=== PATIENT | female | born 1990 | race Caucasian/White ===

== ENCOUNTER → 2018-12-07 | Outpatient (CLI) | payer MEDICAID ==
--- NOTE | 2018-12-07 12:41 | Diagnostic Imaging Report ---
INDICATION: Epigastric abdominal pain. TECHNIQUE: Multiple grayscale sonographic images were obtained of the right upper quadrant of the abdomen. CORRELATION STUDY: None. FINDINGS: LIVER: There is increased echotexture within the visualized portions of the liver. There is normal, hepatopetal direction of flow within the main portal vein. Liver length of 17.3 cm. GALLBLADDER: The gallbladder demonstrates no definitive shadowing gallstones. No abnormal gallbladder wall thickening. COMMON BILE DUCT: Nondilated at 4 mm. PANCREAS: Largely obscured and not well visualized. RIGHT KIDNEY: Measures 11.5 x 5.0 x 6.2 cm. No hydronephrosis. AORTA/IVC: Not well visualized. OTHER: Small amount of fluid within the gallbladder fossa. IMPRESSION: 1. Changes likely reflecting moderate severity hepatic steatosis. 2. Negative for gallstones or bile duct dilatation. Small amount of pericholecystic fluid is present, nonspecific as to the etiology or significance. Dictated by: Dictated on workstation # [id number]
== END ==
LOC: RAD 08:08
PROVIDERS: ATTEND Nurse Practitioner Primary Care
DX: R10.13 Epigastric pain (principal)
CPT/HCPCS: 76705

== ENCOUNTER 2019-04-02 13:47 | Emergency (ER) | payer MEDICAID ==
[~2019-04-02] VITALS: Ht 160 cm; Wt 81.6 kg
--- NOTE | 2019-04-02 14:12 | ED Lower Extremity ---
General Chief Complaint: Lower Extremity Stated Complaint: R KNEE PAIN Nursing Triage Note: PT AMB TO TRIAGE WITH COMPLAINT OF RIGHT KNEE PAIN. STATES SHE HAS CHRONIC KNEE PAIN BUT WAS MOVING THE OTHER DAY AND KNEE BUCKLED AND POPPED. STATES PAIN HAS INCREASED. Nursing Sepsis Screen: No Definite Risk Source: patient Exam Limitations: no limitations History of Present Illness Date Seen by Provider: Apr 02, 2019 Time Seen by Provider: 14:11 Initial Comments To ER by and 5 children with reports of right knee pain. She has chronic right knee pain. She had a patellar dislocation several years ago for a knee brace and that seemed to get better. Last night her knee "buckled and bent backwards". states that it was the size of a football. Miraculously, today it is back to normal. She has persistent pain and feels as though it's going to dislocate again. Onset: just prior to arrival Severity: moderate Pain/Injury Location: right knee Method of Injury: unknown Modifying Factors: Improves With Movement Allergies and Home Medications Allergies Coded Allergies: hydrogen peroxide (Verified Allergy, Unknown, 04/02/19) latex (Verified Allergy, Unknown, 04/02/19) Patient Home Medication List Home Medication List Reviewed: Yes Review of Systems Constitutional: see HPI EENTM: see HPI Respiratory: no symptoms reported Cardiovascular: no symptoms reported Genitourinary: no symptoms reported Musculoskeletal: see HPI Skin: no symptoms reported Psychiatric/Neurological: No Symptoms Reported Past Xeswtzk-Agbkuq-Vjfmqr Hx Patient Social History Alcohol Use: Denies Use Recreational Drug Use: No Smoking Status: Never a Smoker Recent Foreign Travel: No Contact w/Someone Who Travel: No Recent Infectious Disease Expo: No Physical Abuse: No Sexual Abuse: No Mistreated: No Fear: No Immunizations Up To Date Tetanus Booster (TDap): Unknown PED Vaccines UTD: Yes Physical Exam Vital Signs Vital Signs - First Documented 04/02/19 13:57 Temp 98.0 Pulse 82 Resp 16 B/P (MAP) 133/80 (97) Pulse Ox 97 O2 Delivery Room Air Capillary Refill : Less Than 3 Seconds Height, Weight, BMI Height: 5'3.00" Weight: 180lbs. oz. 81.106911mz; BMI Method:Stated General Appearance: WD/WN, no apparent distress HEENT: PERRL/EOMI Neck: non-tender, full range of motion Hips: bilateral hip non-tender, bilateral hip normal inspection, bilateral hip normal range of motion Legs: bilateral leg non-tender, bilateral leg normal inspection, bilateral leg normal range of motion Knees: right knee other (she is normal in appearance without ecchymosis edema or palpable effusion. No deformity.) Ankles: bilateral ankle non-tender, bilateral ankle normal inspection, bilateral ankle normal range of motion Feet: bilateral foot non-tender, bilateral foot normal inspection, bilateral foot normal range of motion Neurologic/Psychiatric: alert, normal mood/affect, oriented x 3 Skin: normal color, warm/dry Dorsalis pedis pulse is +2 in strength. Able to manually without difficulty. Progress/Results/Core Measures Results/Orders My Orders Orders - JASEN RICE APRN Knee, Right, 3 Views (04/02/19 14:09) Vital Signs/I&O 04/02/19 13:57 Temp 98.0 Pulse 82 Resp 16 B/P (MAP) 133/80 (97) Pulse Ox 97 O2 Delivery Room Air Blood Pressure Mean: 97 Departure Impression Primary Impression: Internal derangement of knee Qualified Codes: M23.91 - Unspecified internal derangement of right knee Disposition: 01 HOME, SELF-CARE Condition: Stable Departure-Patient Inst. Decision time for Depature: 14:13 Referrals: [facility] [place] (PCP) Primary Care Physician KOKI SERRA APRN (Family) Primary Care Physician Patient Instructions: Internal Derangement of the Knee Add. Discharge Instructions: 1. Wear the knee brace/immobilizer until told to take it off by primary care. 2. Call your primary care provider tomorrow to make an appointment to be seen. Further evaluation might include MRI. All discharge instructions reviewed with patient and/or family. Voiced understanding. JASEN RICE APRN Apr 02, 2019 14:12
--- NOTE | 2019-04-02 14:58 | Diagnostic Imaging Report ---
INDICATION: Stepped wrong and felt pop in knee. FINDINGS: Right knee. Three views. Articulating surfaces are smooth. Joint spaces well-preserved. Patella is in good alignment with capitellum. IMPRESSION: Normal right knee. Dictated by: Dictated on workstation # [id number]
[2019-04-02 15:12] VITALS: BP 133/80
== END 2019-04-02 15:12 | disposition home or self-care (01) ==
LOC: EDUNIT# 13:47 → ER 13:48
DX: M23.91 Unspecified internal derangement of right knee (principal); Z91.040 Latex allergy status; Z88.8 Allergy status to other drugs, medicaments and biological substances
CPT/HCPCS: 73562

== ENCOUNTER 2019-04-19 05:39 | Outpatient (CLI) | payer MEDICAID ==
[~2019-04-19] VITALS: Ht 162.6 cm; Wt 89.0 kg
[2019-04-19] MEDS ORDERED: ESCI20TA45 PO (12:55)
[2019-04-19] MEDS ORDERED: PNV1TABL81 PO (12:55)
== END 2019-04-19 12:59 | disposition home or self-care (01) ==
LOC: PREOP 05:39
PROVIDERS: ATTEND Surgery
DX: Z01.818 Encounter for other preprocedural examination (principal)

== ENCOUNTER 2019-04-26 06:56 | Day surgery (SDC) | payer MEDICAID ==
[2019-04-26] VITALS (9 sets, daily range): BP systolic 110–145; BP diastolic 66–86
[~2019-04-26] VITALS: Ht 162 cm; Wt 89.0 kg
[~2019-04-26 06:56] MED LIST: ESCI20TA45 PO; PNV1TABL81 PO
[2019-04-26] MEDS ORDERED: BUP/EPI 0.25% 1:200,000 (MARCAINE) 10 ML VIAL IJ ONE (07:21)
[2019-04-26] MEDS: LACTATED RINGERS 1,000 ML IV PRN ×2 (07:30→10:05)
[2019-04-26 07:42] LABS: BASOPHILS % (AUTO) 0 % (0-10); EOSINOPHILS # (AUTO) 0.1 10^3/uL (0.0-0.3); EOSINOPHILS % (AUTO) 3 % (0-10); HEMATOCRIT 38 % (35-52); HEMOGLOBIN 12.6 G/DL (11.5-16.0); LYMPHOCYTES # (AUTO) 1.4 X 10^3 (1.0-4.0); LYMPHOCYTES % (AUTO) 31 % (12-44); MEAN CORPUSCULAR HEMOGLOBIN 30 PG (25-34); MEAN CORPUSCULAR HGB CONC 33 G/DL (32-36); MEAN CORPUSCULAR VOLUME 90 FL (80-99); MEAN PLATELET VOLUME 10.1 FL (7.4-10.4); MONOCYTES # (AUTO) 0.3 X 10^3 (0.0-1.0); MONOCYTES % (AUTO) 6 % (0-12); NEUTROPHILS # (AUTO) 2.8 X 10^3 (1.8-7.8); NEUTROPHILS % (AUTO) 60 % (42-75); PLATELET COUNT 240 10^3/uL (130-400); RED CELL DISTRIBUTION WIDTH 12.8 % (10.0-14.5); WHITE BLOOD COUNT 4.7 10^3/uL (4.3-11.0)
[2019-04-26] MEDS ORDERED: ceFAZolin 2 GM/50 ML NS 50 ML IV ONE (08:00)
--- NOTE | 2019-04-26 08:01 | Progress Note-Pre Operative ---
Pre-Operative Progress Note H&P Reviewed The H&P was reviewed, patient examined and no changes noted. Date Seen by Provider: Apr 26, 2019 Time Seen by Provider: 08:00 Date H&P Reviewed: Apr 26, 2019 Time H&P Reviewed: 08:00 Pre-Operative Diagnosis: ruq abd pain, abnormal galllbladder ultrasound GONZALO WALSH DO Apr 26, 2019 08:00
[2019-04-26] MEDS ORDERED: ONDANSETRON 4 MG/2 ML (SDV) Z0FRAN ONE ×2 (08:11→08:14)
[2019-04-26] MEDS ORDERED: SEVOFLURANE (ULTANE) 15 ML INHAL SOLN ONE ×4 (08:14→10:08)
[2019-04-26] MEDS ORDERED: DEXAMETHASONE 10 MG/ML (DECADRON) 1 ML VIAL ONE (08:14)
[2019-04-26] MEDS ORDERED: ROCURONIUM 10 MG/ML 5 ML SYRINGE IV ONE (08:14)
[2019-04-26] MEDS ORDERED: LIDOCAINE PF 2% 5 ML (XYLOCAINE) VIAL ONE ×2 (08:14→10:08)
[2019-04-26] MEDS ORDERED: GLYCOPYRROLATE 0.2 MG/ML (ROBINUL) 2 ML VIAL ONE (08:14)
[2019-04-26] MEDS ORDERED: proPOfol 200 MG/20 ML (DIPRIVAN) VIAL IV ONE (08:14)
[2019-04-26] MEDS ORDERED: NEOSTIGMINE 3 MG/3 ML VIAL ONE (08:14)
[2019-04-26] MEDS ORDERED: ONDANSETRON 4 MG/2 ML (SDV) Z0FRAN IVP ONE (08:15)
[2019-04-26] MEDS ORDERED: MIDAZOLAM 2 MG/2 ML (VERSED) VIAL ONE (09:05)
[2019-04-26] MEDS ORDERED: fentaNYL INJECTION 100 MCG/2 ML AMP ONE ×2 (09:05→10:22)
--- NOTE | 2019-04-26 10:10 | Progress Note-Post Operative ---
Post-Operative Progess Note Surgeon (s)/[employer] Worker (s) Surgeon GONZALO WALSH DO [employer] Worker: Dr. Silva Pre-Operative Diagnosis ruq abd pain, abnormal galllbladder ultrasound Post-Operative Diagnosis same Procedure & Operative Findings Date of Procedure 04/26/19 Procedure Performed/Findings lap mayank c ioc Anesthesia Type gen Estimated Blood Loss Estimated blood loss (mL): min Specimens/Packing Specimens Removed gallbladder GONZALO WALSH DO Apr 26, 2019 10:10
[2019-04-26] MEDS ORDERED: ACHD5005 PO (10:13)
[2019-04-26] MEDS ORDERED: DOCU-143 PO (10:13)
--- NOTE | 2019-04-26 10:15 | Discharge Inst-Simple/Standard ---
Discharge Inst-Standard Discharge Medications New, Converted or Re-Newed RX: RX on Chart Patient Instructions/Follow Up Plan of Care/Instructions/FU: 2-3 weeks Edgardo Activity as Tolerated: No Discharge Diet: Regular Diet Other Inst to Patient Follow up Appt: Make appointment for 2-3 weeks. Instructions: No lifting greater than 10 pounds. No strenuous activity. May shower in 24 hours, no tub bath or soaking. Use incentive spirometer at home as directed. No Smoking Skin/Wound Care: You have special glue over incisions it will fall off on its own. Symptoms to Report: Appetite Changes, Extremity Discoloration, Numbness/Tingling, Swelling Increased, Bleeding Excessive, Eyesight Changes, Pain Increased, Urine Color Change, Constipation(Persistent), Fever over 101 degree F, Pain/Pressure in c hest, Urinating Difficulty, Cough Up/Vomit Blood, Heart Beat Irreg/Pounding, Pain/Pressure in jaw, Vaginal Bleeding Increase, Cramps in feet or legs, Lightheadedness, Pain/Pressure in shoulder, Diarrhea(Persistent), Memory Changes Suddenly, Questions/Concerns, Weight gain consecutive days, Dizziness/Fainting, Nausea/Vomiting, Shortness of Breath, Weight gain over 2 pounds. If eyes or skin turn yellow notify physician. If questions or concerns contact your physician Or seek help at emergency department. GONZALO WALSH DO Apr 26, 2019 10:15
[2019-04-26] MEDS ORDERED: ONDANSETRON 4 MG/2 ML (SDV) Z0FRAN IVP PRN (10:30)
[2019-04-26] MEDS ORDERED: HYDROmorphone 2 MG/ML VIAL (DILAUDID) IV ONE (10:30)
[2019-04-26] MEDS ORDERED: morphine INJ 10 MG/ML 1ML (SYR OR VIAL) IVP ONE (10:30)
--- NOTE | 2019-04-26 11:43 | Diagnostic Imaging Report ---
Indication: Fluoroscopy during intraoperative cholangiogram. Fluoroscopy was provided in the OR during intraoperative cholangiogram. 7 seconds of fluoroscopic time was utilized. Images demonstrate contrast being injected via the cystic duct remnant. Visualized intrahepatic and extrahepatic bile ducts are normal caliber. There are no filling defects. Contrast passes into the duodenum. Impression: Fluoroscopy during intraoperative cholangiogram. Dictated by: Dictated on workstation # [id number]
[2019-04-26] MEDS ORDERED: HYDROcodone/APAP 5 MG/325 MG (LORTAB) TAB PO ONE (11:45)
[2019-04-26] MEDS ORDERED: HYDROcodone/APAP 5 MG/325 MG (LORTAB) TAB ONE (11:49)
[2019-04-26] MEDS ORDERED: IOPAMIDOL 61% 30 ML (ISOVUE 300) VIAL IV ONE (12:03)
--- NOTE | 2019-04-26 13:27 | Anesthesia-General Post-Op ---
General Patient Condition Mental Status/LOC: Same as Preop Cardiovascular: Satisfactory Nausea/Vomiting: Absent Respiratory: Satisfactory Pain: Controlled Complications: Absent Post Op Complications Complications None Follow Up Care/Instructions Patient Instructions None needed. Anesthesia/Patient Condition Patient Condition Patient is doing well, no complaints, stable vital signs, no apparent adverse anesthesia problems. No complications reported per nursing. ULISES TEAGUE CRNA Apr 26, 2019 13:27
--- NOTE | 2019-04-26 17:48 | OPERATIVE REPORT ---
DATE OF SERVICE: 04/26/2019 PREOPERATIVE DIAGNOSIS: Right upper quadrant abdominal pain and abnormal gallbladder ultrasound. POSTOPERATIVE DIAGNOSIS: Right upper quadrant abdominal pain and abnormal gallbladder ultrasound. PROCEDURE: Laparoscopic cholecystectomy with intraoperative cholangiogram. SURGEON: Gonzalo Reynoso DO PAID SEARCH MARKETING ANALYST: Danny Silva DO, assisted in retraction, dissection and closure. ANESTHESIA: General. ESTIMATED BLOOD LOSS: Minimal. COMPLICATIONS: None. INDICATIONS: The patient is a 29-year-old female with right upper quadrant abdominal pain. She had an abnormal pericholecystic fluid on ultrasound. She understands risks and benefits of procedure and wished to proceed with procedure. Consent was signed in the chart. DESCRIPTION OF PROCEDURE: The patient was taken to the operating suite. She was prepped and draped in sterile fashion. Timeout was performed. Local anesthetic was infiltrated. A #11 blade scalpel was used to make a skin incision and cautery used to dissect down to the fascia, which was scored, grasped, elevated. The abdomen was then entered. A 0 Vicryl was placed in a [id number] fashion for closure at the end of the case. Balloon trocar was inserted. Pneumoperitoneum was achieved. Under direct visualization of the laparoscope, a 5 mm trocar was then placed in subxiphoid region and two 5 mm trocars were placed in the right upper quadrant. Gallbladder was grasped, elevated with some small adhesions to the gallbladder. These were taken down bluntly. Cystic duct and cystic artery were then dissected out. Clips were placed on the proximal and distal portion of the cystic artery and distal portion of the cystic duct that was then partially transected. Arrow catheter was inserted and cholangiogram was performed. There were no filling defects. Contrast made its way into the duodenum without difficulty. Catheter was then removed. Clips were placed on the proximal portion of the cystic duct and the duct and the artery were then transected. Hook cautery used to dissect the gallbladder from the gallbladder fossa achieving hemostasis. Once removed, it was placed in an Endobag and removed through the 12 mm trocar site. Abdomen was then irrigated with copious amounts of irrigation and suctioned. The abdomen was then desufflated, the trocars were removed. The 0 Vicryl was placed earlier was then tied closing the defect of the 12 mm fascial defect. Skin was then closed using 4-0 Monocryl in subcuticular fashion. The abdomen was then washed and dried and Skin Affix was placed over the incisions. The patient tolerated procedure well without any complications. She was taken to recovery room in stable condition. Job ID: [id number] DocumentID: [id number] Dictated Date: 04/26/2019 10:18:22 Deputy Commissioner Date: 04/26/2019 17:48:14 Dictated By: GONZALO REYNOSO DO
== END 2019-04-26 12:40 | disposition home or self-care (01) ==
LOC: SDC 06:56
PROVIDERS: ATTEND Surgery
DX: K81.1 Chronic cholecystitis (principal); K42.9 Umbilical hernia without obstruction or gangrene; G43.909 Migraine, unspecified, not intractable, without status migrainosus; F41.9 Anxiety disorder, unspecified; Z91.040 Latex allergy status; Z87.891 Personal history of nicotine dependence; Z88.8 Allergy status to other drugs, medicaments and biological substances; Z79.899 Other long term (current) drug therapy; Z79.891 Long term (current) use of opiate analgesic; Z80.9 Family history of malignant neoplasm, unspecified; Z83.6 Family history of other diseases of the respiratory system
CPT/HCPCS: 36415; 84703; 85025; 87081; 88304; 94664

== ENCOUNTER 2020-01-01 06:10 | Outpatient (RCR) | payer MEDICAID ==
[~2020-01-01 06:10] MED LIST changes: +ACHD5005 PO; +DOCU-143 PO
== END 2020-01-04 14:01 | disposition home or self-care (01) ==
LOC: PREOP 06:10 → EDSTATUS 09:30 → PREOP 01-04 14:01
PROVIDERS: ATTEND Surgery
DX: Z01.818 Encounter for other preprocedural examination (principal)

== ENCOUNTER 2020-01-10 05:44 | Outpatient (RCR) | payer MEDICAID ==
[~2020-01-10] VITALS: Ht 162.6 cm; Wt 89.0 kg
== END 2020-01-10 11:40 | disposition home or self-care (01) ==
LOC: PREOP 05:44
PROVIDERS: ATTEND Surgery
DX: Z01.812 Encounter for preprocedural laboratory examination (principal); K92.1 Melena; K52.9 Noninfective gastroenteritis and colitis, unspecified; Z20.828 Contact with and (suspected) exposure to other viral communicable diseases
CPT/HCPCS: 87635